=== PATIENT | female | born 2000 | race Caucasian/White ===

== ENCOUNTER 2018-10-06 08:16 | Emergency (ER) | payer MEDICAID ==
--- NOTE | 2018-10-06 09:09 | EDM.PDOC ---
ED HPI GENERAL MEDICAL PROBLEM - General Chief Complaint: Upper Extremity Injury/Pain Stated Complaint: LEFT WRIST Time Seen by Provider: 10/06/18 08:45 Source of Information: Reports: Patient - History of Present Illness INITIAL COMMENTS - FREE TEXT/NARRATIVE: pt slipped on ice falling and injuring her left wrist, c/o pain at left wrist, denies any other injuries or any other concerns. left wrist Pain Score (Numeric/FACES): 7 - Related Data Allergies Allergy/AdvReac Type Severity Reaction Status Date / Time No Known Allergies Allergy Verified 10/06/18 08:36 Home Meds: Home Meds NK [No Known Home Meds] 10/06/18 [History] Past Medical History - Past Health History Medical/Surgical History: Denies Medical/Surgical History Social & Family History - Family History Family Medical History: Noncontributory - Tobacco Use Smoking Status *Q: Never Smoker - Caffeine Use Caffeine Use: Reports: Coffee Review of Systems - Review of Systems Review Of Systems: See Below Constitutional: Reports: No Symptoms Respiratory: Reports: No Symptoms Cardiovascular: Reports: No Symptoms Neurological: Reports: No Symptoms ED EXAM, GENERAL - Physical Exam Exam: See Below Exam Limited By: No Limitations General Appearance: Alert, Mild Distress Head: Atraumatic Neck: Normal Inspection, Supple, Non-Tender Respiratory/Chest: Lungs Clear, Normal Breath Sounds Cardiovascular: Regular Rate, Rhythm, No Murmur Extremities: Other (pt has tenderness over the lateral side of left wrist, there is no deformities or swelling ) Neurological: Alert, Oriented, CN II-XII Intact, No Motor/Sensory Deficits Skin Exam: Warm, Intact Course - Vital Signs Text/Narrative:: xray shows no acute findings. supportive mng for contusion injury was recommended. Last Recorded V/S: Last Vital Signs Temp 36.6 C 10/06/18 08:16 Pulse 84 10/06/18 08:16 Resp 17 10/06/18 08:16 BP 128/81 10/06/18 08:16 Pulse Ox 100 10/06/18 08:16 - Orders/Labs/Meds Orders: Active Orders 24 hr Category Date Time Status Wrist Comp Min 3V Lt [CR] Stat Exams 10/06/18 08:27 Taken Labs: Laboratory Tests 10/06/18 Range/Units 08:31 Urine HCG, Qual Negative (NEGATIVE) Departure - Departure Time of Disposition: 09:08 Disposition: Home, Self-Care 01 Clinical Impression: Wrist contusion - Discharge Information Referrals: PCP,None [Primary Care Provider] - - My Orders Last 24 Hours: My Active Orders 10/06/18 08:27 Wrist Comp Min 3V Lt [CR] Stat - Assessment/Plan Last 24 Hours: My Active Orders 10/06/18 08:27 Wrist Comp Min 3V Lt [CR] Stat
--- NOTE | 2018-10-06 09:18 | CR ---
INDICATION: Pain at left wrist due to fall. LEFT WRIST: Three views of the left wrist were obtained 10/06/18 - no comparisons. A fracture, dislocation, or other significant bone or joint abnormality was not identified. If symptoms persist - if occult abnormality is suspected clinically, additional examination such as nuclear bone imaging or MRI may be helpful. MTDD
== END 2018-10-06 09:38 | disposition home or self-care (01) ==
LOC: FB.ED 08:16
DX: S60.212A Contusion of left wrist, initial encounter (principal); W00.0XXA Fall on same level due to ice and snow, initial encounter
CPT/HCPCS: 73110-LT; 81025; 99283-25

== ENCOUNTER 2023-07-25 09:25 | Emergency (ER) | payer BC, MEDICAID | END 2023-07-25 10:20 | disposition home or self-care (01) | LOC: FB.ED 09:25 | DX: A08.4 Viral intestinal infection, unspecified (principal); J06.9 Acute upper respiratory infection, unspecified | CPT/HCPCS: 99283 ==

== ENCOUNTER 2024-05-04 06:11 | Emergency (ER) | payer BC ==
[2024-05-04] MEDS: Ondansetron 4 MG Tab.DIS PO ONE (06:34)
[2024-05-04 06:43] LABS: BASOPHILS PERCENT AUTO 0.3 % (0.2-1.5); EOSINOPHILS ABSOLUTE AUTO 0.1 x10-3/uL (0.0-0.8); EOSINOPHILS PERCENT AUTO 1.7 % (0.6-8.1); HEMATOCRIT 41.4 % (34.2-48.2); HEMOGLOBIN 14.1 g/dL (11.4-15.5); LYMPHOCYTES ABSOLUTE AUTO 1.2 x10-3/uL (1.0-4.4); LYMPHOCYTES PERCENT AUTO 22.1 % (18.4-52.1); MEAN CORPUSCULAR HEMOGLOBIN 30.3 pg (23.9-33.9); MEAN CORPUSCULAR HGB CONC 34.1 g/dL (31.9-34.8); MEAN CORPUSCULAR VOLUME 88.8 fL (76.7-100.5); MEAN PLATELET VOLUME 7.8 fL (7.1-12.4); MONOCYTES ABSOLUTE AUTO 0.4 x10-3/uL (0.3-1.0); MONOCYTES PERCENT AUTO 6.7 % (4.4-15.7); NEUTROPHILS ABSOLUTE AUTO 3.8 x10-3/uL (1.5-6.3); NEUTROPHILS PERCENT AUTO 69.2 % (30.8-76.2); PLATELET COUNT,PLT 208 x10(3)uL (151-488); RED BLOOD CELL COUNT 4.66 x10(6)uL (3.60-5.20); RED CELL DISTRIBUTION WIDTH 12.2 % (12.3-16.5); WHITE BLOOD CELL COUNT,WBC 5.5 x10-3/uL (3.0-10.3)
[2024-05-04 06:49] LABS: CALCIUM 8.9 mg/dL (8.6-10.2); CARBON DIOXIDE,CO2 26 mmol/L (21-32); CHLORIDE,CL 108 mmol/L (100-110); CREATININE 0.9 mg/dL (0.55-1.02); EST CRCL DRUG DOSING (CG) 88.68 mL/min; ESTIMATED GFR 90 mL/min (>60); GLUCOSE RANDOM 102 mg/dL (80-116); POTASSIUM,K 3.7 mmol/L (3.5-5.3); SODIUM,NA 144 mmol/L (135-145)
[2024-05-04 06:55] LABS: A/G RATIO 1.3; ALANINE AMINOTRANSFERASE,ALT 16 U/L (12-36); ALKALINE PHOSPHATASE 64 IU/L (56-112); ASPARTATE AMNIOTRANSFERASE,AST 8 IU/L (5-25); PROTEIN TOTAL,TP 7.1 g/dL (6.0-8.0)
[2024-05-04 06:58] LABS: BLOOD UREA NITROGEN,BUN < 5 mg/dL (7-18); BUN/CREATININE RATIO 5.6 (9-20)
== END 2024-05-04 07:22 | disposition home or self-care (01) ==
LOC: FB.ED 06:11
DX: A08.4 Viral intestinal infection, unspecified (principal)
CPT/HCPCS: 36415; 80053; 85025; 99283; 99284; Q0162